=== PATIENT | female | born 1980 | race African-American/Black ===

== ENCOUNTER → 2019-09-17 | Outpatient (CLI) | payer OTHER ==
[2016-05-07 01:25] VITALS: BP 136/86
[~2019-09-17] MED LIST: AMOX1TAB11 PO; IBUP-1027 PO
--- NOTE | 2019-09-17 16:16 | RAD ---
EXAM: Pelvic sonogram. HISTORY: Pelvic pain. IUD placement. TECHNIQUE: Sonographic imaging of the pelvis was performed. COMPARISON: None. FINDINGS: The uterus measures 8.6 x 6.2 x 4.7 cm. There is an intrauterine contraceptive device within the endometrial cavity. The ovaries are normal in size and demonstrate normal blood flow. There is a 4.4 cm right ovarian cyst. There is no pelvic free fluid. IMPRESSION: 1. 4.4 cm right ovarian cyst. 2. IUD within expected position. Electronically signed by: Liv Obrien MD (09/17/2019 4:13 PM) [place] [id number]
== END | disposition home or self-care (01) ==
LOC: US 14:14
PROVIDERS: ATTEND Obstetrics & Gynecology
DX: N83.201 Unspecified ovarian cyst, right side (principal); Z97.5 Presence of (intrauterine) contraceptive device
CPT/HCPCS: 76856

== ENCOUNTER → 2020-02-04 | Outpatient (CLI) | payer BC, OTHER ==
[2016-05-07 01:25] VITALS: BP 136/86
[~2020-02-04] MED LIST changes: +IOHEXOL 240 MG/ML 50ML VIAL. PO ONE; +IOHEXOL 300 MG/ML 100ML VIAL. IV ONE; +OMEP40CA45 PO; +SPIR50TA4 PO; +TRAM50TA PO
--- NOTE | 2020-02-04 09:38 | KCIC ---
EXAM: Abdomen and pelvis CT with intravenous contrast. HISTORY: Pain. TECHNIQUE: Computed tomographic images of the abdomen and pelvis were obtained following the administration of intravenous contrast. Multiplanar reformatting was performed. *One or more of the following individualized dose reduction techniques were utilized for this examination: 1. Automated exposure control. 2. Adjustment of the mA and/or kV according to patient size. 3. Use of iterative reconstruction technique. COMPARISON: None. FINDINGS: Evaluation of the lower thorax is unremarkable. There is a tiny hypodense lesion within the right hepatic lobe, too small to characterize. There is minimal fatty infiltration of the liver along the falciform ligament. The gallbladder, pancreas and spleen are unremarkable. There is a 2.8 cm hypodense lesion within the left adrenal gland, the attenuation which favors a benign adenoma. The kidneys are unremarkable. There is no appendicitis. There is no bowel obstruction. There is no abnormal bowel wall thickening. The urinary bladder is unremarkable. There is an IUD within the endometrial cavity. There are multiple ovarian follicles. There is a dominant right ovarian follicle/follicular cyst measuring 2.2 cm. There is a small amount of pelvic free fluid, within physiologic limits. There is no lymphadenopathy. There is no suspicious osseous lesion. IMPRESSION: 1. 2.8 cm left adrenal nodule, the attenuation which favors an adenoma. 2. Suspected tiny incidental hepatic cyst or hemangioma, too small to characterize. 3. Dominant physiologic right ovarian follicle/follicular cyst measuring 2.2 cm. There is also a small amount of physiologic pelvic free fluid. Electronically signed by: Liv Obrien MD (02/04/2020 9:35 AM) [facility]
== END ==
LOC: KCIC CT 08:03
PROVIDERS: ATTEND Internal Medicine
DX: K76.0 Fatty (change of) liver, not elsewhere classified (principal)
CPT/HCPCS: 74177; Q9966; Q9967

== ENCOUNTER 2020-05-15 11:44 | Emergency (ER) | payer OTHER, BC ==
[~2020-05-15] VITALS: Ht 175.3 cm; Wt 82.0 kg
[~2020-05-15 11:44] MED LIST changes: -IOHEXOL 240 MG/ML 50ML VIAL. PO ONE; -IOHEXOL 300 MG/ML 100ML VIAL. IV ONE
[2020-05-15 12:26] VITALS: BP 161/92
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
--- NOTE | 2020-05-15 13:05 | RAD ---
EXAM: Chest and left ribs, 5 views. HISTORY: Pain. COMPARISON: None. FINDINGS: A frontal view of the chest and 4 views of the left ribs are obtained. There is no infiltrate, pleural effusion or pneumothorax. The heart is normal in size. No displaced fracture is seen. IMPRESSION: No acute pulmonary or osseous finding. Electronically signed by: Liv Obrien MD (05/15/2020 1:02 PM) [id number]
[2020-05-15] MEDS ORDERED: NAPR-514 PO (13:30)
[2020-05-15] MEDS ORDERED: CYCL10TA2 PO (13:30)
== END 2020-05-15 13:46 | disposition home or self-care (01) ==
LOC: ER 11:44
DX: S46.912A Strain of unspecified muscle, fascia and tendon at shoulder and upper arm level, left arm, initial encounter (principal); R07.81 Pleurodynia; I10 Essential (primary) hypertension; J45.909 Unspecified asthma, uncomplicated; Z88.8 Allergy status to other drugs, medicaments and biological substances; V43.52XA Car driver injured in collision with other type car in traffic accident, initial encounter; Y92.488 Other paved roadways as the place of occurrence of the external cause; Y93.89 Activity, other specified; Y99.8 Other external cause status
CPT/HCPCS: 71101; 81025; 99283